=== PATIENT | female | born 1945 | race Caucasian/White ===

== ENCOUNTER 2021-12-13 21:41 | Emergency (ER) | payer OTHER ==
[~2021-12-13] VITALS: Ht 162.6 cm; Wt 47.6 kg
--- NOTE | 2021-12-13 21:57 | NUR ---
PT. IN BED, AOX4, ABLE TO MAKE NEEDS KNOWN, SL NOTED ON LEFT AC, BIB PARAMEDICS, EKG DONE
[2021-12-13] MEDS ORDERED: POTASSIUM BICARBONATE/CIT AC 25 MEQ TABLET.EFF PO ONE (22:00)
[2021-12-13] MEDS ORDERED: DILTIAZEM HCL 25 MG IV IV ONE (22:00)
[2021-12-13] MEDS ORDERED: DILTIAZEM HCL 25 MG IV ONE (22:10)
[2021-12-13] MEDS ORDERED: MAGNESIUM SULFATE/D5W 100 ML ONE ×2 (22:11→22:54)
[2021-12-13] MEDS ORDERED: POTASSIUM BICARBONATE/CIT AC 25 MEQ TABLET.EFF ONE (22:11)
[2021-12-13 22:32] LABS: HEMATOCRIT 45.2 % (31.2-41.9); MEAN CORPUSCULAR HEMOGLOBIN 31.1 uug (24.7-32.8); PLATELET COUNT (AUTO) 142 K/uL (179-408)
[2021-12-13 22:39] LABS: MAGNESIUM 1.8 mg/dL (1.8-2.4)
[2021-12-13 22:40] LABS: CARBON DIOXIDE 28 mmol/L (21-32); CHLORIDE 106 mmol/L (98-107); CREATININE 0.8 mg/dL (0.6-1.3); GLUCOSE 159 mg/dL (74-106); POTASSIUM 4.1 mmol/L (3.5-5.1); UREA NITROGEN, BLOOD 20 mg/dL (7-18)
[2021-12-13] MEDS: MAGNESIUM SULFATE/D5W 100 ML IV SCH ×2 (22:46→23:00)
--- NOTE | 2021-12-13 22:46 | NUR ---
all due meds given, ekg repeat done, NS rhythm noted informed MD Julien
[2021-12-13 22:53] LABS: THYROID STIMULATING HORMONE 2.911 mIU/mL (0.358-3.740)
[2021-12-13] MEDS ORDERED: IV NS 1000 ML 1,000 ML IV ONE (23:15)
[2021-12-13] MEDS ORDERED: SWABABLE VALVE TRANSFER SET EA MC ONE (23:25)
[2021-12-13] MEDS ORDERED: IV NORMAL SALINE 250 ML IV ONE (23:25)
[2021-12-13] MEDS ORDERED: IOHEXOL 350 100 ML INFUS..BTL ONE (23:25)
[2021-12-14] MEDS: MAGNESIUM SULFATE/D5W 100 ML IV SCH (00:10)
[2021-12-14] MEDS ORDERED: MAGNESIUM SULFATE/D5W 100 ML ONE (00:13)
[2021-12-14] MEDS ORDERED: BLOO-1731 MC (00:58)
[2021-12-14 01:31] VITALS: BP 120/70
--- NOTE | 2021-12-14 01:32 | NUR ---
Patient discharged to home in stable condition. Written and verbal after care instructions given. Patient verbalizes understanding of instructions. Stressed follow up or return to ER for worsening s/s.
== END 2021-12-14 01:32 | disposition home or self-care (01) ==
LOC: ER 21:41
DX: I48.91 Unspecified atrial fibrillation (principal); E78.5 Hyperlipidemia, unspecified; I25.2 Old myocardial infarction; Z95.5 Presence of coronary angioplasty implant and graft; Z86.79 Personal history of other diseases of the circulatory system; Z87.891 Personal history of nicotine dependence; R79.1 Abnormal coagulation profile
CPT/HCPCS: 99285; 96365; 71275; 71045; 96375; 80048; 83880; 83735; 84443; 85025; 85379; 84484; 36415; 93005 ×2; 83605; 96366; J3490; J3475 ×3; Q9967; J7040; A4663